=== PATIENT | female | born 1955 | race Caucasian/White ===

== ENCOUNTER → 2017-07-02 | Outpatient (CLI) | payer BC ==
[2017-07-02] MEDS: GADOBUTROL 7.5 MMOL/7.5 ML VIAL IV ×2 (16:19→16:20)
== END | disposition home or self-care (01) ==
LOC: KCIC MRI 14:58
DX: R27.0 Ataxia, unspecified (principal); Z98.2 Presence of cerebrospinal fluid drainage device
CPT/HCPCS: 70553; A9585